=== PATIENT | male | born 1960 | race African-American/Black ===

== ENCOUNTER 2019-09-01 16:56 | Emergency (ER) | payer OTHER ==
[~2019-09-01] VITALS: Ht 180.3 cm; Wt 110.2 kg
[~2019-09-01 16:56] MED LIST: ASPI-1169 PO; BENA40TA8 PO; SIMV20TA2 PO
--- NOTE | 2019-09-01 17:05 | NUR ---
SELIN RA 61 From [facility] acute "SOB/CP/CHF-worse today gave 325 ASA and 3sprays Nitro", To ER bed 10, hooked to monitor, changed to hosp gown, warm blanket provided, per patient, c/o epigastric pain going side to side, nitro spray did not do much to help",also c/o dizziness and back pain, 02/13 PS. awaiting md teresa.
--- NOTE | 2019-09-01 17:13 | NUR ---
dr mariscal at bedside
[2019-09-01] MEDS ORDERED: CLONIDINE HCL 0.1 MG TABLET PO ONE (17:30)
[2019-09-01] MEDS ORDERED: IBUPROFEN 600 MG TABLET PO ONE ×2 (17:30→17:56)
[2019-09-01 17:39] LABS: BASOPHILS # (AUTO) 0.1 /CMM (0.0-0.2); BASOPHILS % (AUTO) 2.2 % (0.0-2.0); EOSINOPHILS % (AUTO) 1.3 % (0.0-6.0); HEMATOCRIT 48 % (39-51); HEMOGLOBIN 16.6 g/dL (13.5-17.5); LYMPHOCYTES # (AUTO) 1.3 /CMM (0.8-4.8); LYMPHOCYTES % (AUTO) 20.2 % (20.0-44.0); MEAN CORPUSCULAR HGB CONC 35 g/dl (31.0-36.0); MEAN CORPUSCULAR VOLUME 91 fL (80-96); MONOCYTES # (AUTO) 0.7 /CMM (0.1-1.30); MONOCYTES % (AUTO) 9.9 % (2.0-12.0); NEUTROPHILS # (AUTO) 4.4 /CMM (1.8-8.9); NEUTROPHILS % (AUTO) 66.4 % (43.0-81.0); PLATELET COUNT (AUTO) 225 /CMM (150-450); RED BLOOD CELL COUNT(AUTO) 5.29 MIL/uL (4.5-6.0); WHITE BLOOD COUNT (AUTO) 6.6 K/uL (4.3-11.0)
--- NOTE | 2019-09-01 17:40 | NUR ---
XRAY AT BEDSIDE
[2019-09-01 17:46] LABS: CALCIUM, SERUM 9.4 mg/dL (8.5-10.1); CARBON DIOXIDE 24 mmol/L (21-32); CHLORIDE 104 mmol/L (98-107); CREATININE 1.1 mg/dL (0.6-1.3); GLUCOSE 110 mg/dL (74-106); POTASSIUM 3.3 mmol/L (3.5-5.1); SODIUM SERUM 140 mmol/L (136-145); UREA NITROGEN, BLOOD 14 mg/dL (7-18)
[2019-09-01 17:58] LABS: ALANINE AMINOTRANSFERASE 41 U/L (12-78); ALBUMIN 3.9 g/dL (3.4-5.0); ALKALINE PHOSPHATASE 144 U/L (46-116); ASPARTATE AMINOTRANSFERASE 25 U/L (15-37); BILIRUBIN,DIRECT 0.2 mg/dL (0.0-0.2); BILIRUBIN,TOTAL 0.5 mg/dL (0.2-1.0); LIPASE 80 U/L (73-393); TOTAL PROTEIN, SERUM 7.8 g/dL (6.4-8.2)
[2019-09-01] MEDS ORDERED: LORAZEPAM 0.5 MG TABLET PO ONE (18:00)
--- NOTE | 2019-09-01 19:30 | NUR ---
REPORT GIVEN TO ABIGAIL MEIER FOR RG
--- NOTE | 2019-09-01 19:50 | NUR ---
CALLED CALL THE CAR FOR TRANSPORTATION. [facility] #[id number], ETA 1 HOUR WITH [facility]
--- NOTE | 2019-09-01 19:55 | NUR ---
REC'D CALL FROM KALI, PT'S MOTHER AND WAS INFORMED PT IS STAYING [facility] [address] [place] [address]. CALLED FACILITY AND INFORMED PT IS RETURNING
--- NOTE | 2019-09-01 20:35 | NUR ---
IV removed. Catheter intact and site benign. Pressure and 4x4 applied to site. No bleeding noted.
--- NOTE | 2019-09-01 20:39 | NUR ---
REPORT GIVEN TO EMS FOR PT TRANSFER BACK TO FACILITY.
[2019-09-01 20:40] VITALS: BP 133/81
== END 2019-09-01 20:42 | disposition home or self-care (01) ==
LOC: ER 16:57
DX: I48.91 Unspecified atrial fibrillation (principal); I10 Essential (primary) hypertension; F41.9 Anxiety disorder, unspecified; J45.909 Unspecified asthma, uncomplicated; Z88.6 Allergy status to analgesic agent; Z79.899 Other long term (current) drug therapy; Z79.82 Long term (current) use of aspirin
CPT/HCPCS: 36415; 71045-TC; 72110-TC; 80048-TC; 80076-TC; 83690-TC; 83880; 84484-TC; 85025-TC